=== PATIENT | male | born 1960 | race Caucasian/White ===

== ENCOUNTER → 2017-02-17 | Outpatient (CLI) | payer BC ==
--- NOTE | 2017-02-17 11:22 | CT ---
EXAMINATION TYPE: CT Enterography DATE OF EXAM: 02/17/2017 COMPARISON: NONE HISTORY: 56-year-old male Epigastric pain/weight loss TECHNIQUE: Contiguous axial scanning of the abdomen and pelvis performed without and with IV Contrast , patient injected with 100 mL of Omnipaque 350. Enterography protocol was utilized. Patient ingested Coronal/sagittal reconstructions performed. CT DLP: 1552 mGycm Automated exposure control for dose reduction was used. FINDINGS: The heart is normal size without pericardial effusion. Small hiatal hernia. Postsurgical changes of Reji-en-Y gastric bypass. The Reji limb especially after the gastrojejunostom y is dilated at 4.1 cm with air-fluid level. Some circumferential thickening just below the GE juncti on may be secondary to collapsed portion of the stomach, refer to axial series 12 image 15. Small bow el loops are diffusely fluid-filled with mucosal enhancement though there is no evident abnormal wall thickening or suspicious mucosal hyperemia involving the ileum to a greater extent. Evaluation the liver shows intrahepatic biliary ductal dilatation more extensively involving biliary radicles in the left hepatic lobe particularly in segments 2 and 3 as well as 4B. There may be abnormal segment of enhancement along the upper bile and cystic duct, refer to axial ser ies 12 image 26 and 27 and coronal series 13 image 35 and 37. There is heterogeneous periportal enhancement in the liver suggesting KENNETH lesions and shunting. This equilibrates on the portal venous phase. Intramural cystic changes along the gallbladder fundus suggestive of adenomyomatosis. No abnormal gal lbladder distention. Adrenal glands and kidneys are within normal limits. Calcified granulomas in the spleen. There is ramos e residual mottled enhancement of the spleen probably due to the timing of the scan. Mild atrophy of the pancreas. There appears to be dilatation of the main pancreatic duct within the t ail and focal 1.6 cm area of differential enhancement in the distal pancreatic body, axial series 12 image 30 with some caliber change of the duct noted here. Difficult to discern discrete lymph nodes due to the crowded intra-abdominal contents. Moderate stool burden within the colon. The rectum is distended up to 8.4 cm wide with stool. Mild atherosclerotic changes throughout the abdominal aorta with ectatic right common iliac artery at 1.5 cm. Mild diffuse anasarca-type change. Trace pelvic free fluid. There seems to be mild circumferential bl adder wall thickening as well. Mild perisplenic ascites. Bones: Dextroconvex scoliosis. No osseous destructive process seen. IMPRESSION: 1. THE PATIENT WILL REQUIRE FURTHER CLINICAL CORRELATION MULTIPLE FINDINGS ARE PRESENT. 2. THE ENTEROGRAPHY PORTION SHOWS DIFFUSE FLUID-FILLED SMALL BOWEL LOOPS WITH MUCOSAL ENHANCEMENT THR OUGHOUT. DIFFUSE ILEUS OR ENTERITIS IS SUGGESTED. 3. PRIOR REJI-EN-Y GASTRIC BYPASS. THE REJI LIMB IS DILATED WITH AIR-FLUID LEVEL. THE LACK OF DILATAT ION OF THE GASTRIC REMNANT ARGUES AGAINST STENOSIS/OBSTRUCTION AT THE LOWER ANASTOMOSIS. PROBABLY DUE TO THE DIFFUSE ILEUS/ENTERITIS MENTIONED ABOVE. 4. MULTIPLE KENNETH LESIONS IN THE LIVER WITH INTRAHEPATIC BILIARY DUCTAL DILATATION. THE LEFT HEPATIC L OBE IS INVOLVED TO A GREATER EXTENT. THERE MAY BE ABNORMAL DUCTAL ENHANCEMENT OF THE UPPER BILE DUCT AND CYSTIC DUCT. RECOMMEND CORRELATION WITH CA-19-9 LEVELS AND PATIENT'S SYMPTOMS TO EXCLUDE ENTITIES SUCH CHOLANGIOCARCINOMA. 5. CIRCUMFERENTIAL SOFT TISSUE THICKENING JUST BELOW THE GE JUNCTION PROBABLY RELATES TO COLLAPSED ST OMACH RATHER THAN NEOPLASM. DIRECT VISUALIZATION IF INDICATED. 6. MAIN PANCREATIC DUCTAL DILATATION IN THE TAIL OF THE PANCREAS. THERE SEEMS TO BE A 1.6 CM AREA OF DIFFERENTIAL ENHANCEMENT IN THE PANCREATIC BODY. AN OBSTRUCTING MASS IS NOT EXCLUDED AT THIS TIME. CO NSIDER MRI. 7. MILD DIFFUSE ANASARCA TYPE CHANGE. THERE IS MILD PERISPLENIC ASCITES AND MILD PELVIC FREE FLUID WELL.
== END | disposition home or self-care (01) ==
LOC: RADCTMAIN 07:58
PROVIDERS: ATTEND Nurse Practitioner Family
DX: K76.89 Other specified diseases of liver (principal); K83.9 Disease of biliary tract, unspecified; R18.8 Other ascites; K86.89 Other specified diseases of pancreas; Z98.84 Bariatric surgery status
CPT/HCPCS: 74177; Q9967

== ENCOUNTER → 2017-08-18 | Outpatient (CLI) | payer BC ==
--- NOTE | 2017-08-19 09:28 | FL ---
EXAMINATION TYPE: FL UGI air w small bowel DATE OF EXAM: 08/19/2017 COMPARISON: CT 02/17/2017 HISTORY: 57-year-old male history of stomach cancer in 2015 status post gastrectomy. Patient placed o n TPN in March 2017 now with hepatic complications. Referred for assessment prior to feeding tube placement. Patient reports that ingested material backs up. TECHNIQUE: A single contrast UGI study is performed with small bowel follow through. The patient ing ested only a total of 5.5 ounces of thin barium. Total fluoroscopy time: 1 minute 36 seconds Total images: 58 FINDINGS: Customer Relations Representative image of the abdomen shows an external biliary drain and multiple staple lines in the left uppe r quadrant from patient's partial gastrectomy and Reji-en-Y gastric bypass. Nonobstructive bowel gas pattern. The patient was instructed to take small swallows at a time. The esophagus shows normal motility and emptying into the stomach. There are postsurgical changes of partial gastrectomy with Reji-en-Y gastric bypass. Contrast collec ts in the gastric remnant and after initial hesitation, passes across the gastrojejunostomy which see ms to be positioned left laterally and anteriorly. However, after only a couple ounces, there is pooling in the gastric remnant, proximal small bowel im mediately after the anastomosis, and in the lower esophagus with recurrent episodes of gastroesophage al reflux. At 1 hour 45 minutes, residual contrast is noted within the esophagus. Prominent contrast remains in the gastric remnant and the Reji limb but there is progressive contrast located below the lower anast omosis. At 3 hours 15 minutes, prominent contrast remains in the gastric remnant and left upper quadrant Reji limb but with persistent gastroesophageal reflux. Because of the persistent gastroesophageal reflux, no further oral contrast was given. Below the lower anastomosis, there has been some progressive mov ement of the contrast. On the delayed image, the following morning approximately 18 hours later, small amount of residual ba rium remains in the gastric remnant, left upper outer quadrant Reji limb, and minimal scattered throu ghout small bowel loops below the lower anastomosis. Contrast is seen within the ascending and transv erse colon. IMPRESSION: 1. Status post partial gastrectomy with Reji-en-Y gastric bypass. 2. Findings suggest a partial obstruction/stenosis at the lower anastomosis. The patient ingested onl y a total of 5.5 ounces of thin barium and even after 3 hours 15 minutes, prominent contrast remained in the gastric remnant and LUQ Reji limb with persistent gastroesophageal reflux. 3. The following morning, most of the contrast had progressed to the colon with minimal scattered con trast in small bowel loops below the anastomosis and mild residual contrast in the gastric remnant an d Reji limb.
== END | disposition home or self-care (01) ==
LOC: RADFLMAIN 11:46
PROVIDERS: ATTEND Family Medicine
DX: C16.9 Malignant neoplasm of stomach, unspecified (principal); Z98.84 Bariatric surgery status
CPT/HCPCS: 74249